=== PATIENT | female | born 1970 | race Two or more races ===

== ENCOUNTER 2021-11-01 06:48 | Day surgery (SDC) | payer OTHER ==
[2021-11-01] MEDS ORDERED: PERCOCET 5-3251 EACH PO (12:19)
== END 2021-11-01 14:25 | disposition home or self-care (01) ==
LOC: CIR.AMB 06:48
PROVIDERS: ATTEND Surgery
DX: E21.0 Primary hyperparathyroidism (principal); Z20.822 Contact with and (suspected) exposure to COVID-19